=== PATIENT | male | born 1990 | race African-American/Black ===

== ENCOUNTER 2019-03-11 18:31 | Emergency (ER) | payer SELFPAY ==
[~2019-03-11] VITALS: Ht 167.6 cm; Wt 68.2 kg
[2019-03-11 19:40] VITALS: BP 127/84
== END 2019-03-11 20:08 | disposition home or self-care (01) ==
LOC: EMS 18:33
DX: L30.1 Dyshidrosis [pompholyx] (principal); B35.2 Tinea manuum; F17.210 Nicotine dependence, cigarettes, uncomplicated; F12.90 Cannabis use, unspecified, uncomplicated